=== PATIENT | male | born 1955 | race Two or more races ===

== ENCOUNTER → 2024-11-29 | Outpatient (CLI) | payer OTHER, MEDICAID, SELFPAY ==
--- NOTE | 2024-11-29 14:20 | XR_ITS ---
Examination: Lumbar spine, 5 views Technique: Lumbar spine AP, lateral, coned lateral lower lumbar spine, bilateral obliques 5 views Exam date and time: November 29, 2024 1431 hours INDICATIONS: Back pain beginning 2 weeks ago. FINDINGS: Significant osteopenia Moderate diffuse facet arthropathy No lumbar fracture Mild diffuse lumbar degenerative disc disease No spondylolisthesis IMPRESSION: Mild diffuse lumbar degenerative disc disease
--- NOTE | 2024-11-29 14:20 | XR_ITS ---
Examination: Thoracic spine 3 views Technique one AP lateral coned lateral upper dorsal spine 3 views Exam date and time: November 29, 2024 1431 hours INDICATIONS: Back pain beginning 2 weeks ago. FINDINGS: Moderate osteopenia No acute thoracic fracture Mild chronic osteoporotic wedging lower dorsal vertebral bodies Mild kyphosis dorsal spine Mild to moderate diffuse thoracic degenerative disc disease IMPRESSION: Mild to moderate diffuse thoracic degenerative disc disease
--- NOTE | 2024-11-29 14:20 | XR_ITS ---
EXAMINATION: Cervical spine, 5 views Technique: Cervical spine AP, AP odontoid, lateral, bilateral obliques, 5 views Exam date and time: November 29, 2024 1431 hours Comparison June 24, 2023 INDICATIONS: Neck pain beginning 2 weeks ago. FINDINGS: Adequate alignment cervical vertebral bodies No cervical fracture No significant cervical disc narrowing No significant neural foraminal stenosis Intact odontoid IMPRESSION: Satisfactory alignment cervical vertebral bodies No cervical fracture or significant cervical disc narrowing
== END | disposition home or self-care (01) ==
PROVIDERS: PCP Family Medicine; Referring Provider Family Medicine; Visit Provider Family Medicine
DX: M54.2 Cervicalgia (principal); M51.34 Other intervertebral disc degeneration, thoracic region; M51.369 Other intervertebral disc degeneration, lumbar region without mention of lumbar back pain or lower extremity pain
CPT/HCPCS: 72050; 72072; 72110

== ENCOUNTER → 2025-06-29 | Outpatient (CLI) | payer OTHER, MEDICAID, SELFPAY ==
[2025-06-29 08:46] LABS: Prostate Specific Antigen 0.78 ng/mL (0-4.00)
[2025-06-29 08:49] LABS: Alanine Aminotransferase 21 U/L (10-49); Albumin, Serum 4.5 gm/dL (3.4-4.8); Albumin/Globulin Ratio 1.7 (1.2-2.2); Alkaline Phosphatase 65 U/L (46-116); Anion Gap 10 (7-16); Aspartate Amino Transferase 27 U/L (0-34); BUN/Creatinine Ratio 13 Ratio (12-20); Bilirubin,Total 0.8 mg/dL (0.3-1.2); Blood Urea Nitrogen 13 mg/dL (9-23); Calcium 9.7 mg/dL (8.3-10.6); Calcium (Corrected) 9.7 mg/dL (8.5-10.1); Carbon Dioxide 27.8 mMol/L (20.0-31.0); Chloride 103 mMol/L (98-107); Creatinine (Component) 1.0 mg/dL (0.6-1.3); Free T4 (Free Thyroxine) 1.07 ng/dL (0.89-1.76); Globulin 2.7 gm/dL (2.3-3.5); Glucose 102 mg/dL (74-106); Osmolality,Calculated 281 (275-295); Potassium 3.9 mMol/L (3.4-5.1); Sodium 141 mMol/L (136-145); Thyroid Stimulating Hormone 4.60 uIU/mL (0.55-4.78); Total Protein 7.2 gm/dL (5.7-8.2); eGFR > 60 See Note
[2025-06-29 14:18] LABS: Cholesterol 166 mg/dL (132-200); Triglycerides 67 mg/dL (30-150)
[2025-06-29 14:58] LABS: Cardiac Risk Estimate 2.9 RATIO (4.0-6.7); HDL Cholesterol 58 mg/dL (40-60); LDL Cholesterol,Calculated 95 mg/dL (0-130)
== END | disposition home or self-care (01) ==
LOC: COPL 07:43
PROVIDERS: PCP Family Medicine; Referring Provider Family Medicine; Visit Provider Family Medicine
DX: N42.9 Disorder of prostate, unspecified (principal); E03.2 Hypothyroidism due to medicaments and other exogenous substances; E78.1 Pure hyperglyceridemia; Z13.1 Encounter for screening for diabetes mellitus
CPT/HCPCS: 36415; 80053; 80061; 84153; 84439; 84443

== ENCOUNTER 2025-07-10 09:10 | Day surgery (SDC) | payer OTHER, MEDICAID, SELFPAY ==
[2025-07-10] VITALS (10 sets, daily range): BP systolic 115–175; BP diastolic 66–97; PULSE 56–88; RESP 14–20; TEMP 36.4–37; O2SAT 96–100; BMI 28.0
[2025-07-10] MEDS: SODIUM CHLORIDE 0.9% 500 ML 500 ML 20 ML IV (10:52)
[2025-07-10] MEDS: fentaNYL CIT INJ 50 mCg/ML AMP 2ML (ASD USE ONLY) IVP (10:53)
[2025-07-10] MEDS: MIDAZOLAM INJ 1 MG/ML VIAL 2 ML (ASD USE ONLY) 2 MG IVP (10:53)
== END 2025-07-10 11:41 | disposition home or self-care (01) ==
PROVIDERS: PCP Family Medicine; Referring Provider Specialist; Visit Provider Specialist
PROC: 0DBE8ZX Excision of Large Intestine, Via Natural or Artificial Opening Endoscopic, Diagnostic (ICD-10-PCS; CPT 45380; principal; 2025-07-10 09:30)
DX: Z12.11 Encounter for screening for malignant neoplasm of colon (principal); K64.9 Unspecified hemorrhoids; K57.30 Diverticulosis of large intestine without perforation or abscess without bleeding
CPT/HCPCS: G0121; A4649; J1200; J2250; J3010; J7999